=== PATIENT | female | born 2000 | race Caucasian/White ===

== ENCOUNTER 2021-05-07 11:52 | Inpatient (IN) | payer SELFPAY ==
[2021-05-07 13:09] VITALS: BP 124/87; PULSE 78; RESP 18; TEMP 37; O2SAT 98
[2021-05-07 13:10] VITALS: BMI 44.1
[2021-05-07 14:00] VITALS: BP 124/87; PULSE 78; RESP 18; TEMP 37
[2021-05-07] MEDS: nicotine 2 mg Gum BUCCAL ×2 (14:38→18:04)
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
[2021-05-07] MEDS: hyDROXYzine 25 mg Capsule 50 MG PO (20:16)
[2021-05-07] MEDS: trazodone 50 mg Tablet PO (20:16)
[2021-05-07 20:55] VITALS: BP 125/88; PULSE 68; RESP 14; TEMP 36.8; O2SAT 97
[2021-05-08 06:00] VITALS: BP 89/51; PULSE 65; RESP 14; TEMP 37.1; O2SAT 95
[2021-05-08] MEDS: nicotine 2 mg Gum BUCCAL (12:31)
--- NOTE | 2021-05-08 13:09 | NPU.GN ---
[facility] Topic: Coping CheckeGeneral Mood of Group: Saima did not attend group as she wanted to sleep.
[2021-05-08 13:51] VITALS: BP 127/90; PULSE 73; RESP 16; TEMP 36.9; O2SAT 98
--- NOTE | 2021-05-08 13:55 | W.PM.NPUPNS ---
Subjective NPU Subjective: Interval history: She talked with her boyfriend last night and he has talked with his roommates and they are going to let her move in with the house with him. She is very happy about that and is certain that it will work out well. She really likes his friends and feels like they are part of her family. She is very optimistic that things will go very well. Mental Status Exam MSE Comments: This is a well-developed and well-nourished female who appears her stated age. She is pleasant and cooperative with the interview. She has normal psychomotor activity and good eye contact. Her speech is clear and coherent and of regular rate and rhythm. Her psychomotor activity is within normal limits. Her mood is good and optimistic. Her affect is euthymic. She denies any auditory or visual hallucinations. She denies any suicidal or homicidal ideation. Her thought content is logical and goal-directed. There is no evidence of any delusional material. Her intellect appears to be average. Her insight and judgment appeared to be good at this time. Cognition: Patient Appearance: Appropriate Level of Consciousness: Awake and Alert Attention Span Ability: Capable of Focused Attention Level of Alertness: Alert and Active Patient Cognition Impaired: No Ability to Follow Directions: Excellent Executive Function Ability: No Deficits Noted Patient Orientation (long list): Person, Place and Time Comprehension Ability: No Impairment Memory Description: Intact Perception: None Receptive Language Skills Age Appropriate: Yes Hallucination Type: None Delusion Description: Not Present Thought Process: Appropriate Thought Content: Intact Affect: Affect Description: Calm Behavior: Patient Behavior: Appropriate Speech Pattern: Appropriate and Clear Vitals/I&O/Wt Last Vital Signs Temp 98.5 F 05/09/21 15:14 Pulse 78 05/09/21 15:14 Resp 18 05/09/21 15:14 BP 122/82 05/09/21 15:14 Pulse Ox 99 05/09/21 15:14 A&P Assessment and plan (1) Major depressive disorder, recurrent severe without psychotic features: This is a 21-year-old female who thought about taking an overdose yesterday and cut on her wrists with a dull knife making some scratches. She continued to have suicidal ideation in the emergency room. She is substantially improved at this time we will watch 1 more day and probably discharged tomorrow. Plan: 1. Continue her current medications of Abilify 2 mg, Wellbutrin XL 150 mg and Atarax 25 mg at bedtime. 2. Continue every 15-minute checks for her safety. 3. Encourage individual, group and milieu therapies. Status: Acute (2) Suicidal ideation: Status: Acute Involuntary Hold Information 96 Hour Hold: 96 Hour Involuntary Admission: No Attestations NPU Medical Necessity Statement*: Inpatient hospitalization is medically necessary and the clinically appropriate intervention at this time. We will initiate medications and make changes as indicated. 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
[2021-05-08 20:05] VITALS: BP 111/78; PULSE 75; RESP 15; O2SAT 99
[2021-05-08] MEDS: trazodone 50 mg Tablet PO (20:55)
[2021-05-08] MEDS: hyDROXYzine 25 mg Capsule PO (20:55)
--- NOTE | 2021-05-08 22:04 | PC.NURSE ---
Patient calm and cooperative. A&OX4. C/o mild anxiety and requested meds for sleep. Took PRN Vistaril and Trazodone to good effect. No further complaints at this time. In bed resting with eyes closed.
[2021-05-09 06:00] VITALS: BP 109/77; PULSE 91; RESP 18; TEMP 36.6; O2SAT 98
[2021-05-09] MEDS: ARIPiprazole 2 mg Tablet PO (09:10)
[2021-05-09] MEDS: buPROPion XL (24 HR) 150 mg Tablet PO (09:10)
[2021-05-09] MEDS: hyDROXYzine 25 mg Capsule PO (09:11)
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
[2021-05-09 14:00] VITALS: PULSE 78; TEMP 36.9
[2021-05-09 15:14] VITALS: BP 122/82; PULSE 78; RESP 18; TEMP 36.9; O2SAT 99
== END 2021-05-09 15:23 | disposition home or self-care (01) | DRG 885 ==
PROVIDERS: Admitting Provider Psychiatry & Neurology Psychiatry; Visit Provider Psychiatry & Neurology Psychiatry
DX: F33.2 Major depressive disorder, recurrent severe without psychotic features (principal); R45.851 Suicidal ideations; F17.290 Nicotine dependence, other tobacco product, uncomplicated; Z63.4 Disappearance and death of family member; Z62.810 Personal history of physical and sexual abuse in childhood; Z81.3 Family history of other psychoactive substance abuse and dependence; Z62.898 Other specified problems related to upbringing; Z91.51 Personal history of suicidal behavior
CPT/HCPCS: 97150; 97165